=== PATIENT | male | born 1965 | race Caucasian/White ===

== ENCOUNTER → 2024-05-22 13:55 | Outpatient (REF) | payer SELFPAY | LOC: RAD 13:55 | PROVIDERS: ATTENDING PHYSICIAN Physician Assistant | DX: N50.89 Other specified disorders of the male genital organs (principal) | CPT/HCPCS: 76870; 93976 ==

== ENCOUNTER → 2025-05-18 08:20 | Outpatient (REF) | payer SELFPAY ==
[2025-05-18 08:31] LABS: Glucose 103 mg/dl (70-99)
== END ==
LOC: PET 08:20
PROVIDERS: Radiology Neuroradiology; ATTENDING PHYSICIAN Internal Medicine Pulmonary Disease
DX: R91.1 Solitary pulmonary nodule (principal); Z01.812 Encounter for preprocedural laboratory examination
CPT/HCPCS: 36415; 82947

== ENCOUNTER 2025-05-31 09:22 | Emergency (ER) | payer SELFPAY ==
[2025-05-31 09:31] VITALS: BP 110/84
--- NOTE | 2025-05-31 11:31 | ED.GENMED ---
History of Present Illness
General
Chief Complaint: Generalized Pain
Source: patient
Time Seen by Provider: 05/31/25 11:22
History of Present Illness
History of Present Illness:
60-year-old male presents to the emergency room complaining of pain primary located in the right chest. Patient was diagnosed with lung cancer recently. He was referred to [facility] where he saw a oncologist, Dr. Jones. A PET scan was ordered and
performed a couple weeks ago. He has not heard anything about the results. Patient's contacted the oncologist at [facility] multiple times to see if he can get some treatment for his pain but states he has not received a callback. Patient denies
any fever or chills. He is not particular short of breath.
Past History
Past History
ED Past Medical History: None and Other (Questionable kidney stones)
ED Past Surgical History: None
Social History
Tobacco: Smoker
Alcohol: None
Drug: None
Personal: Single
Living: alone
Employment: Employed
Phy Exam
Physical Exam
Physical Exam:
General: Awake, Alert, Oriented X3. No acute distress but appears uncomfortable particular with movement of his chest and arms
Vitals: unremarkable
Head: Atraumatic
Eyes: Pupils equal, EOMI
Throat: Airway intact, no exudates
Neck: Trachea midline
Lungs: Poor inspiratory effort, no focality
Heart: Regular rate, no murmurs
Abd: Soft, Nontender, No pulsatile mass
Neuro: Nonfocal
Skin: Warm, dry, no rash
Extremities: pulses equal b/l, no edema
Course
Orders/Labs/Results
Orders:
Orders
05/31/25 11:29
HYDROmorphone [Dilaudid] 0.5 mg IV NOW STA
CR Chest - 2 Views Urgent
Comment:
Reason For Exam: right sided chest pain
05/31/25 11:51
Basic Metabolic Panel Urgent
Complete Blood Count/With Diff Urgent
05/31/25 13:26
HYDROmorphone [Dilaudid] 0.5 mg IV NOW STA
Ketorolac [Toradol] 15 mg IV NOW STA
05/31/25 13:27
CT Chest PE Study Urgent
Comment:
Reason For Exam: right chest pain
Abnormal Lab Results
05/31/25
11:51
RBC 3.67 L 10^6/uL
(4.70-6.10)
Hgb 10.7 L g/dL
(13.0-18.0)
Hct 32.3 L %
(39.0-52.0)
Absolute Monos (auto) 0.8 H 10^3/uL
(0.1-0.6)
Glucose 105 H mg/dl
(70-99)
05/31/25 11:51
05/31/25 11:51
Vital Signs
Initial and Last Documented VS:
Initial Vital Signs
Temp Pulse Resp BP Pulse Ox
98.1 F 84 16 110/84 98
05/31/25 09:31 05/31/25 09:31 05/31/25 09:31 05/31/25 09:31 05/31/25 09:31
Last Documented Vital Signs
Temp Pulse Resp BP Pulse Ox
98.3 F 99 19 134/86 97
05/31/25 15:08 05/31/25 15:08 05/31/25 15:08 05/31/25 15:08 05/31/25 15:08
MDM/Problems Addressed
Differential Diagnosis Includes:
PE, spontaneous thorax, pain from metastatic disease to the thorax
MDM/Problems Addressed:
Patient presents with severe chest pain. He was recently found to have lung mass. He is in the process of having this worked up. Workup here shows no evidence for PE or pneumothorax. He does have a wide array of metastatic lesions in the thorax,
spine and elsewhere. Try pain control with oxycodone 1 to 2 pills every 4 hours until he can follow-up with his oncologic doctors.
*Pulse Oximetry
SaO2: 98
Oxygen Mode of Delivery: Room air
Patient hypoxic: no
*Critical Care Note
Total Time (30-74mins, 75-104mins- exclusive of procedures): Not Applicable
ED Attending Note
-
Portions of this chart may have been created with voice recognition software.� Occasional wrong word or��sound alike� substitutions may have occurred due to the inherent limitations of voice recognition software.
Discharge Plan
Departure
Patient Disposition: Home (Routine Discharge)
Date of Disposition: 05/31/25
Time of Disposition: 15:30
Patient with high blood pressure during this ER visit?: No
Condition: Good
Discharge Problem:
Lung mass, Cancer, metastatic to bone
Prescriptions:
New
oxycodone 5 mg tablet
5 mg PO Q4H PRN (Reason: Pain) Qty: 40 0RF
Rx Instructions:
one to two tablets as needed every 4 hours for severe pain
naloxone [Rextovy] 4 mg/actuation spray,non-aerosol
1 spray intranasal Q2M PRN (Reason: opioid overdose) Qty: 2 0RF
Referrals:
Nader Boucher, DO [Active, Hematology / Oncology]
NONE,* [Family Provider, Internal Medicine]
Interventions
Interventions:
*Risk Screen - Suicide Last Done: 05/31/25 09:31
*General Assessment Last Done: 05/31/25 09:31
*Neglect/Abuse Screening Last Done: 05/31/25 09:31
*ED- Fall Risk Assessment Last Done: 05/31/25 15:03
*ED COVID-19 Vaccine History Last Done: 05/31/25 15:03
*ED Influenza Vaccine History Last Done: 10/09/25 15:03
Discharge Date and Time
Print Language: MOHAWK
[2025-05-31] MEDS: DILAUDID 0.5 MG IV ×2 (11:50→13:56)
[2025-05-31 11:53] VITALS: BMI 24.2
[2025-05-31 11:54] VITALS: BP 141/85
[2025-05-31 12:02] LABS: Hematocrit 32.3 % (39.0-52.0); Hemoglobin 10.7 g/dL (13.0-18.0); Mean Corp Hgb Conc. 33.1 g/dL (33.0-37.0); Mean Corpuscular Volume 88.0 fL (80.0-94.0); Nucleated Red Blood Cells % 0 % (-); Platelet Count 250 10^3/uL (130-400); Red Cell Dist. Width 12.6 % (11.5-14.5)
[2025-05-31 12:19] LABS: Blood Urea Nitrogen 17 mg/dl (9-20); Calcium 10.0 mg/dl (8.4-10.2); Carbon Dioxide 30 mmol/L (22-30); Chloride 104 mmol/L (98-107); Estimated Creatinine Clearance 104 ml/min; Glucose 105 mg/dl (70-99); Potassium 4.3 mmol/L (3.5-5.1); Sodium 138 mmol/L (135-145); eGFR > 60.00
[2025-05-31] MEDS: TORADOL 15 MG IV (13:56)
[2025-05-31 15:08] VITALS: BP 134/86
== END 2025-05-31 16:23 | disposition home or self-care (01) ==
LOC: EMR 09:22
PROVIDERS: EMERGENCY PHYSICIAN Emergency Medicine
DX: C78.00 Secondary malignant neoplasm of unspecified lung (principal); C79.51 Secondary malignant neoplasm of bone; C79.89 Secondary malignant neoplasm of other specified sites; F17.200 Nicotine dependence, unspecified, uncomplicated; Z85.118 Personal history of other malignant neoplasm of bronchus and lung
CPT/HCPCS: 99284; 96374; 96375; 96376; 71046; 71275; 80048; 85025; Q9967

== ENCOUNTER 2025-06-12 18:27 | Emergency (ER) | payer MEDICARE, SELFPAY ==
[2025-06-12] VITALS (13 sets, daily range): BP systolic 102–144; BP diastolic 70–85; BMI 24.6
[2025-06-12 19:57] LABS: Hematocrit 33.8 % (39.0-52.0); Hemoglobin 10.9 g/dL (13.0-18.0); Mean Corp Hgb Conc. 32.2 g/dL (33.0-37.0); Mean Corpuscular Volume 89.2 fL (80.0-94.0); Nucleated Red Blood Cells % 0 % (-); Platelet Count 268 10^3/uL (130-400); Red Cell Dist. Width 12.8 % (11.5-14.5)
[2025-06-12 20:18] LABS: ALT (SGPT) 14 U/L (0-50); AST (SGOT) 16 U/L (17-59); Albumin 4.2 g/dl (3.5-5.0); Alkaline Phosphatase 136 U/L (38-126); Blood Urea Nitrogen 19 mg/dl (9-20); Calcium 10.8 mg/dl (8.4-10.2); Carbon Dioxide 28 mmol/L (22-30); Chloride 99 mmol/L (98-107); Estimated Creatinine Clearance 117 ml/min; Glucose 107 mg/dl (70-99); Potassium 4.8 mmol/L (3.5-5.1); Sodium 134 mmol/L (135-145); Total Protein 7.4 g/dl (6.3-8.2); eGFR > 60.00
[2025-06-12 20:29] LABS: Troponin I 0.020 ng/ml
[2025-06-12] MEDS: DILAUDID 2 MG IV ×2 (20:29→21:29)
--- NOTE | 2025-06-12 21:14 | ED.GENMED ---
History of Present Illness
General
Chief Complaint: Chest Pain
Time Seen by Provider: 06/12/25 20:02
History of Present Illness
History of Present Illness:
60-year-old male with history of stage IV lung cancer with metastasis to bone, following at [facility], presenting to the emergency department for chest wall pain and back pain. Patient reports that symptoms started earlier today after he was getting a
CAT scan of his head outpatient. He reports laying on the table and lifting his arms up is what started the pain. Reports pain with deep inspiration and subsequent shortness of breath. He takes oral morphine for pain and his oncologist told him
to double up today, every 12 hours. He did not take the second dose. Cousin at bedside notes issues with pain throughout his cancer journey, follows with pain management. Denies known cardiac issues. Denies abdominal pain or additional acute
medical complaints
Past History
Past History
ED Past Medical History: None and Other (Questionable kidney stones)
ED Past Surgical History: None
Social History
Tobacco: Smoker
Alcohol: None
Drug: None
Personal: Single
Living: alone
Employment: Employed
Phy Exam
Physical Exam
Physical Exam:
General: Well-appearing, no clinical signs of dehydration, nontoxic and in no acute distress
HEENT: protecting airway
Neck: appears supple
CV: Normal heart rate, regular rhythm
Resp: No accessory muscle use, no increased work of breathing, lungs clear to auscultation bilaterally
Abd: No distention
Extremities: No deformities, no swelling
Neuro: alert, no focal neurologic deficit
: deferred
Rectal: deferred
Psych: Normal affect
Skin: Intact
Scores
Heart Score for Chest Pain Patients
STEMI patient?: No
History: Slightly or Non-Suspicious
ECG: Normal
Age: >45 - <65 years
Risk Factors: 1 or 2 Risk Factors
Troponin: </= Normal Limit
Heart Score for Chest Pain Patients: 2
Heart Score Risk: 2.5% MACE over next 6 weeks
Course
Orders/Labs/Results
Orders:
Orders
06/12/25 18:28
Electrocardiogram (*1) Urgent
Reason for Study: Chest Pain
EKG- Treatment ONCE
06/12/25 19:49
CMP [Comprehensive Metabolic Panel] Urgent
Complete Blood Count/With Diff Urgent
Troponin I Urgent
06/12/25 20:01
CR Chest - 2 Views Urgent
Comment:
Reason For Exam: sob
06/12/25 20:16
HYDROmorphone [Dilaudid] 2 mg IV NOW STA
06/12/25 21:21
HYDROmorphone [Dilaudid] 2 mg IV NOW STA
Abnormal Lab Results
06/12/25
19:49
WBC 12.3 H 10^3/uL
(4.8-10.8)
RBC 3.79 L 10^6/uL
(4.70-6.10)
Hgb 10.9 L g/dL
(13.0-18.0)
Hct 33.8 L %
(39.0-52.0)
MCHC 32.2 L g/dL
(33.0-37.0)
Abs Immat Gran (auto) 0.1 H 10^3/uL
(0-0.05)
Absolute Neuts (auto) 8.6 H 10^3/uL
(1.4-6.5)
Absolute Monos (auto) 1.1 H 10^3/uL
(0.1-0.6)
Lymphocytes % 17.0 L %
(20.5-51.1)
Sodium 134 L mmol/L
(135-145)
Glucose 107 H mg/dl
(70-99)
Calcium 10.8 H mg/dl
(8.4-10.2)
AST 16 L U/L
(17-59)
Alkaline Phosphatase 136 H U/L
(38-126)
06/12/25 19:49
06/12/25 19:49
Vital Signs
Initial and Last Documented VS:
Initial Vital Signs
Temp Pulse Resp BP Pulse Ox
98.3 F 102 16 144/85 99
06/12/25 18:31 06/12/25 18:31 06/12/25 18:31 06/12/25 18:31 06/12/25 18:31
Last Documented Vital Signs
Temp Pulse Resp BP Pulse Ox
98.3 F 80 18 116/78 94
06/12/25 18:31 06/12/25 23:00 06/12/25 23:00 06/12/25 23:00 06/12/25 22:45
MDM/Problems Addressed
MDM/Problems Addressed:
60-year-old male with history of metastatic lung cancer presenting for chest pain and back pain after getting an outpatient CT scan. Vital signs on arrival significant for mild tachycardia which resolved without intervention.
On exam, patient is resting comfortably, no acute distress. No respiratory distress. EKG obtained on arrival, nonischemic. Suspect that patient's pain is from his underlying malignancy. Cousin at bedside notes issues with pain, is on chronic
narcotics. Pain worsened after lying flat on a CAT scan table prior to arrival was for a CT head, which was negative for acute process with cousin providing read at bedside. Without present concern for ACS. Patient had a CT of his chest on 05/31,
without evidence of PE. Without present concern for PE. Labs obtained, unremarkable. Will treat patient's pain with Dilaudid, as requested and reassess
22:50 -chest x-ray without acute cardiopulmonary disease. Patient notes that his pain is better. At this time feel stable for discharge with continued outpatient pain management. Return precautions discussed and patient verbalized understanding
*Pulse Oximetry
SaO2: 98
Oxygen Mode of Delivery: Room air
Patient hypoxic: no
*EKG
Interpreted by ED Provider?: Yes
EKG Intrepretation Date: 06/12/25
EKG Intrepretation Time: 21:17
Interpretation: normal
Heart Rate: 103
Rate: tachycardiac
Rhythm: sinus
Pearce: normal axis
Interval: normal interval
QRS Pattern: normal QRS
Ischemia: non-specific ST changes
*Critical Care Note
Total Time (30-74mins, 75-104mins- exclusive of procedures): Not Applicable
ED Attending Note
-
Portions of this chart may have been created with voice recognition software.� Occasional wrong word or��sound alike� substitutions may have occurred due to the inherent limitations of voice recognition software.
Discharge Plan
Departure
Patient Disposition: Home (Routine Discharge)
Date of Disposition: 06/12/25
Time of Disposition: 22:58
Patient with high blood pressure during this ER visit?: No
Condition: Good
Discharge Problem:
Chest wall pain
Instructions: Chest pain (DC)
Prescriptions:
No Action
oxycodone 5 mg tablet
5 mg PO Q4H PRN (Reason: Pain) Qty: 40 0RF
Rx Instructions:
one to two tablets as needed every 4 hours for severe pain
naloxone [Rextovy] 4 mg/actuation spray,non-aerosol
1 spray intranasal Q2M PRN (Reason: opioid overdose) Qty: 2 0RF
Referrals:
Angela Thompson MD [Family Provider, Internal Medicine]
Activity Restrictions/Additional Instructions:
You were seen in the emergency department for pain to your chest and back
You were found to have reassuring laboratory analysis, vital signs, chest x-ray imaging, EKG. We suspect that your pain is from musculoskeletal etiology. We recommend follow-up with your oncologist
Please follow-up closely with your primary care physician.
Return to the emergency department for any worsening of your symptoms, or any development of chest pain, difficulty breathing, abdominal pain with persistent vomiting and inability to tolerate food or liquid by mouth (concern for dehydration),
weakness, headache or confusion, fever greater than 100.4, or any additional symptoms that are concerning to you.
Thank you for choosing [facility].
Interventions
Interventions:
*Risk Screen - Suicide Last Done: 06/12/25 19:40
*General Assessment Last Done: 06/12/25 19:43
*Neglect/Abuse Screening Last Done: 06/12/25 19:40
*ED- Fall Risk Assessment Last Done: 06/12/25 19:43
*ED COVID-19 Vaccine History Last Done: 06/12/25 19:43
*ED Influenza Vaccine History Last Done: 06/12/25 19:43
*Nursing Disposition Last Done: 06/12/25 23:00
ED- Cardiac Assessment Last Done: 06/12/25 19:55
Discharge Date and Time
Discharge Date/Time: 06/12/25 23:00
Print Language: POLISH
== END 2025-06-12 23:00 | disposition home or self-care (01) ==
LOC: EMR 18:27
PROVIDERS: EMERGENCY PHYSICIAN Student in an Organized Health Care Education/Training Program; FAMILY PHYSICIAN Internal Medicine
DX: R07.89 Other chest pain (principal); R00.0 Tachycardia, unspecified; C34.11 Malignant neoplasm of upper lobe, right bronchus or lung; C79.51 Secondary malignant neoplasm of bone; F17.200 Nicotine dependence, unspecified, uncomplicated
CPT/HCPCS: 99284; 96374; 96376; 71046; 80053; 84484; 85025; 93005

== ENCOUNTER 2025-06-21 08:55 | Inpatient (IN) | payer MEDICAID, SELFPAY ==
[2025-06-20 20:51] VITALS: BP 124/83
[2025-06-20] MEDS: DILAUDID 2 MG IV (22:35)
[2025-06-20 22:36] VITALS: BMI 22.9
--- NOTE | 2025-06-20 23:59 | ED.GENMED ---
History of Present Illness
General
Chief Complaint: Musculo-Skeletal Complaint
Time Seen by Provider: 06/20/25 23:59
History of Present Illness
History of Present Illness:
FOCUSED PAST MEDICAL HISTORY
- The patient has history of metastatic lung cancer to the bone known to [employer]
REVIEW OF OLD RECORDS
- The patient had a CAT scan of the chest 07/31/2025 that showed no PE, showed mass right hilar and suprahilar region measuring up to 6.5 cm and osseous mets in the sternum and bilateral ribs that have progressed slightly since 05/18/2025
Note:
CHIEF COMPLAINT(S)
Severe pain in the right side and back.
HISTORY OF PRESENT ILLNESS
The patient is a 60-year-old male with a known history of metastatic disease to the ribs. He arrived in the emergency department via ambulance complaining of severe pain primarily localized to his right side and back. He describes the pain as
worsening with certain movements and notes that it has been persistent for approximately six months. He reports the current pain level as very severe, stating �if I move a certain way, you know, my heart feels uncomfortable.� The patient also
experiences numbness in his arm.
He has been on morphine for approximately one week, prescribed by his oncologists at [place] for pain management, but reports that it is not effectively controlling his pain. Previous visits to the ER resulted in the administration of narcotic
pain medication that also provided limited relief.
EXTERNAL RECORDS REVIEWED
Prior CT scan results were referenced, indicating metastatic disease into the ribs.
CHRONIC MEDICAL CONDITIONS SIGNIFICANTLY AFFECTING CARE
Metastatic disease involving the ribs.
MEDICATIONS
Morphine (prescribed approximately one week ago for pain management).
REVIEW OF SYSTEMS
- Musculoskeletal: Severe pain in the right side and back, numbness in the arm.
- Cardiovascular: Reports feeling heart discomfort associated with movements.
PHYSICAL EXAM
General: Alert, appears very uncomfortable
Skin: Warm, dry. Heavily tattooed, diaphoretic at times may be related to pain and uncomfortable feeling
Head: Normocephalic, atraumatic.
Neck: Supple, trachea midline.
Eyes, Ears, Nose, Mouth, and Throat: Oral mucosa moist.
Cardiovascular: Normal peripheral perfusion, No edema. Marked tenderness to the anterior chest wall diffusely
Respiratory: Respirations are non-labored.
Gastrointestinal: Abdomen nondistended. Trace heme positive brown stool on digital rectal examination
Back: Markedly decreased active range of motion due to pain
Musculoskeletal: Normal ROM, normal strength.
Neurological: Alert and oriented to person, place, time, and situation. Reports numbness in the arm but no abnormality noted on neurologic examination.
Psychiatric: Cooperative, appropriate mood & somewhat of a bizarre and angry affect at times.
PROBLEM LIST
Acute Problems:
- Severe right-sided and back pain
- Numbness in the arm
Chronic Problems:
- Metastatic disease to the ribs
PLAN
1. Administration of additional pain management as requested by the patient.
2. Consideration for patient admission for further pain management and monitoring.
DIFFERENTIAL DIAGNOSIS
The Differential Diagnosis includes, in no particular order and is not limited to:
1. Metastatic bone pain
2. Rib fractures
3. Neural compression
4. Musculoskeletal pain
5. Pleuritic pain
6. Costochondritis
7. Radicular pain
8. Cardiac pain
9. Pulmonary embolism
10. Vertebral fracture or collapse
LABS
- White count 10.8, hemoglobin 8.7 which is lower than 10.9 from 9 days ago and in 2021 it was 13.6, calcium 11.1
UPDATE
- SUMMARY OF ENCOUNTER
The patient, a 60-year-old male with a history of metastatic disease to the ribs, presented to the emergency department with severe pain on the right side and back, accompanied by numbness in the arm. He also reported discomfort in his heart
associated with movement, and ongoing severe pain despite being on morphine for one week. His hemoglobin level has dropped to 8, noted during routine lab checks; however, it was not low enough to necessitate a transfusion. His calcium levels were
also elevated. The patient expressed apprehension about his condition and the effectiveness of pain management, indicating his preference for hospital admission due to the inadequacy of outpatient pain control.
DISPOSITION
Consideration for admission to the hospital for further pain management and control.
ASSESSMENT
The patient is experiencing severe metastatic bone pain related to rib metastases, with additional concerns about potential neural compression and elevated calcium levels, suggestive of further complications associated with metastatic cancer.
PLAN
The plan includes hospital admission for enhanced pain management and monitoring of blood parameters, including addressing elevated calcium levels. Additional discussions regarding pain control and further treatment options may be required.
INDEPENDENT REVIEW OF LABS AND INTERPRETATION OF TESTS
My independent review of CBC indicates a decrease in hemoglobin level to 8, which is consistent with possible anemia but does not yet require a blood transfusion.
My independent review of metabolic panel shows elevated calcium levels, necessitating the administration of IV fluids.
PATIENT EDUCATION AND COUNSELING
Education was provided on the need for hospital admission for better pain management and monitoring of lab parameters. The potential risks of elevated calcium levels were explained.
MEDICATION RECONCILIATION
1. Morphine prescribed for pain management.
MEDICAL DECISION MAKING
- Number and Complexity of Problems Addressed: Chronic conditions affecting care include metastatic disease to the ribs, current presentation with severe right-sided and back pain, numbness in the arm, decreased hemoglobin, and elevated calcium
levels. Differential Diagnosis considerations were metastatic bone pain, rib fractures, neural compression, musculoskeletal pain, pleuritic pain, costochondritis, radicular pain, cardiac pain, pulmonary embolism, vertebral fracture or collapse.
- Data:
Category 1: Non-emergency department records reviewed: Prior review of CT scan results indicating metastatic disease into the ribs.
Category 3: Discussion of management with other healthcare providers: I discussed the possibility of hospital admission and further management with the hospitalist team for the patient�s ongoing severe pain and elevated calcium levels.
- Risk:
Prescription medication was considered, including the necessity for additional IV pain management options. Escalation of care via hospital admission considered due to the complexity and severity of symptoms, alongside underlying comorbidities.
DIAGNOSIS
Intractable cancer-related pain related metastatic lung cancer to bone
Past History
Past History
ED Past Medical History: None and Other (Questionable kidney stones)
ED Past Surgical History: None
Social History
Tobacco: Smoker
Alcohol: None
Drug: None
Personal: Single
Living: alone
Employment: Employed
Phy Exam
Physical Exam
Physical Exam:
See HPI
Course
Orders/Labs/Results
Orders:
Orders
06/20/25 22:33
HYDROmorphone [Dilaudid] 2 mg IV NOW STA
06/21/25 00:16
HYDROmorphone [Dilaudid] 2 mg IV NOW STA
06/21/25 00:29
Complete Blood Count/With Diff Urgent
Comprehensive Metabolic Panel Urgent
06/21/25 01:29
0.9% Sodium Chloride 1000 ml [Nss] 1,000 ml IV BOLUS
06/21/25 01:39
HYDROmorphone [Dilaudid] 2 mg IV NOW STA
Abnormal Lab Results
06/21/25
00:29
RBC 3.07 L 10^6/uL
(4.70-6.10)
Hgb 8.7 L g/dL
(13.0-18.0)
Hct 26.6 L %
(39.0-52.0)
MCHC 32.7 L g/dL
(33.0-37.0)
Abs Immat Gran (auto) 0.1 H 10^3/uL
(0-0.05)
Absolute Neuts (auto) 7.4 H 10^3/uL
(1.4-6.5)
Absolute Monos (auto) 1.0 H 10^3/uL
(0.1-0.6)
Immature Gran % 0.6 H %
(0-0.5)
Lymphocytes % 18.1 L %
(20.5-51.1)
Monocytes % 9.7 H %
(1.7-9.3)
Sodium 134 L mmol/L
(135-145)
Chloride 95 L mmol/L
(98-107)
BUN 24 H mg/dl
(9-20)
Glucose 136 H mg/dl
(70-99)
Calcium 11.1 H mg/dl
(8.4-10.2)
AST 14 L U/L
(17-59)
06/21/25 00:29
06/21/25 00:29
Vital Signs
Initial and Last Documented VS:
Initial Vital Signs
Temp Pulse Resp BP Pulse Ox
36.6 C 110 16 124/83 95
06/20/25 20:51 06/20/25 20:51 06/20/25 20:51 06/20/25 20:51 06/20/25 20:51
Last Documented Vital Signs
Temp Pulse Resp BP Pulse Ox
36.6 C 82 16 124/83 98
06/20/25 20:51 06/20/25 22:45 06/20/25 22:50 06/20/25 20:51 06/21/25 00:01
*Pulse Oximetry
SaO2: 98
Oxygen Mode of Delivery: Room air
Patient hypoxic: no
*Critical Care Note
Total Time (30-74mins, 75-104mins- exclusive of procedures): Not Applicable
ED Attending Note
-
Portions of this chart may have been created with voice recognition software.� Occasional wrong word or��sound alike� substitutions may have occurred due to the inherent limitations of voice recognition software.
Discharge Plan
Departure
Prescriptions:
No Action
oxycodone 5 mg tablet
5 mg PO Q4H PRN (Reason: Pain) Qty: 40 0RF
Rx Instructions:
one to two tablets as needed every 4 hours for severe pain
naloxone [Rextovy] 4 mg/actuation spray,non-aerosol
1 spray intranasal Q2M PRN (Reason: opioid overdose) Qty: 2 0RF
Referrals:
Angela Thompson MD [Family Provider, Internal Medicine]
Interventions
Interventions:
*Risk Screen - Suicide Last Done: 06/20/25 20:55
*General Assessment Last Done: 06/20/25 22:40
*Neglect/Abuse Screening Last Done: 06/20/25 20:55
*ED- Fall Risk Assessment Last Done: 06/20/25 22:40
*ED COVID-19 Vaccine History Last Done: 06/20/25 22:40
*ED Influenza Vaccine History Last Done: 06/20/25 22:40
ED-Musculoskeletal Assessment Last Done: 06/20/25 22:47
Discharge Date and Time
Print Language: MONTSERRATIAN
[2025-06-21] VITALS (22 sets, daily range): BP systolic 109–152; BP diastolic 55–87; BMI 22.9
[2025-06-21] MEDS: DILAUDID 2 MG IV ×2 (00:30→01:47)
[2025-06-21 00:58] LABS: Hematocrit 26.6 % (39.0-52.0); Hemoglobin 8.7 g/dL (13.0-18.0); Mean Corp Hgb Conc. 32.7 g/dL (33.0-37.0); Mean Corpuscular Volume 86.6 fL (80.0-94.0); Nucleated Red Blood Cells % 0 % (-); Platelet Count 236 10^3/uL (130-400); Red Cell Dist. Width 13.0 % (11.5-14.5)
[2025-06-21 01:10] LABS: ALT (SGPT) 12 U/L (0-50); AST (SGOT) 14 U/L (17-59); Albumin 3.7 g/dl (3.5-5.0); Alkaline Phosphatase 114 U/L (38-126); Blood Urea Nitrogen 24 mg/dl (9-20); Calcium 11.1 mg/dl (8.4-10.2); Carbon Dioxide 29 mmol/L (22-30); Chloride 95 mmol/L (98-107); Estimated Creatinine Clearance 92 ml/min; Glucose 136 mg/dl (70-99); Potassium 4.9 mmol/L (3.5-5.1); Sodium 134 mmol/L (135-145); Total Protein 6.6 g/dl (6.3-8.2); eGFR > 60.00
[2025-06-21] MEDS: NSS 1000 IV (01:34)
--- NOTE | 2025-06-21 02:03 | HPS.HSE ---
Family Physician
-
Family Physician: Angela Thompson
Chief Complaint
-
chest pain
History of Present Illness
This is a 60-year-old with history of metastatic lung cancer with mets to the bone presents to the emergency department today for severe chest and back pain.
He was discharged in the ED last 2 visits earlier this month due to chest pain. At that time he had CTA of the chest which was negative for PE. He did showed a lung malignancy and osseous mets to the sternum and bilateral ribs. He has been
following at [facility] since then. It has progressed since May 18. Chest x-ray on the showed similar findings.
Patient reports pain primary localized to his right side and back. It is worse with movement and it has been persistent for several months. He denies any shortness of breath. He denies any diaphoresis. He does report some numbness in his right
hand. He says he has to move his shoulder his way to get comfortable with the numbness in his right hand. He denies any weakness. He denies any paresthesias or tingling or pins and needle sensation.
He has been on morphine for approximately 1 week prescribed by his oncologist for pain.
In the ED here he was afebrile, blood pressure 124/80 with a pulse of 82 and was satting 98% on room air. He is hemoglobin of 8.7 which is down from 10 a month ago. WBC and platelets were unremarkable. Electrolytes BUN/creatinine were normal.
LFTs were normal.
Medical History
Past Medical History
Past Medical History: Reports Cancer (Metastatic lung cancer)
Past Surgical History: Reports Orthopedic (Right wrist surgery)
Social History
Tobacco: Smoker
Alcohol: None
Drug: None
Personal: Single
Living: Alone
Family History
Family History: Not pertinent
Allergies / Home Medications
Allergies reflects when Allergies were last updated in [employer].
Home Medications with original date entered in [employer]
Allergy/Medication List:
Allergies
Allergy/AdvReac Type Severity Reaction Status Date / Time
No Known Allergies Allergy Verified 06/20/25 22:50
Home Medications
naloxone 4 mg/actuation nasal spray (Rextovy) 1 spray intranasal Q2M PRN opioid overdose #2 ea 05/31/25
oxycodone 5 mg tablet 5 mg PO Q4H PRN Pain #40 tabs 05/31/25
Review of Systems
-
Constitutional: Reports No Symptoms
EENT: Reports No Symptoms
Respiratory: Reports No Symptoms
Cardiac: Reports Chest Pain
Abdomen/GI: Reports Nausea
: Reports No Symptoms
Musculoskeletal: Reports No Symptoms
Skin: Reports No Symptoms
Neurological: Reports No Symptoms
Endocrine: Reports No Symptoms
Hematologic/Lymphatic: Reports No Symptoms
Psych: Reports No Symptoms
Physical Exam
Vital Signs
Vital Signs
Temp Pulse Resp BP Pulse Ox
97.9 F 82 16 124/83 98
06/20/25 20:51 06/20/25 22:45 06/20/25 22:50 06/20/25 20:51 06/21/25 00:01
Physical Exam
General: Well Developed, Well Nourished and No Apparent Distress
HEENT: NormoCephalic, Moist mucous membranes and Atraumatic
Respiratory: Clear
Cardiac: S1/S2 and Regular Rhythm; No Murmur or Rub
GI: Soft, Non Tender, Non Distended and Normal Bowel Sounds; No Organomegaly
Rectal: Deferred by Provider
Musculoskeletal: No Clubbing, No Cyanosis and No Edema
Skin: No Rash
Neuro: AO x 3 and Nonfocal/grossly intact
Psych: Anxious
Laboratory Results
-
06/21/25 00:29
06/21/25 00:29
Laboratory Results
Total Bilirubin 0.5 mg/dl (0.2-1.3) 06/21/25 00:29
AST 14 U/L (17-59) L 06/21/25 00:29
ALT 12 U/L (0-50) 06/21/25 00:29
Alkaline Phosphatase 114 U/L (38-126) 06/21/25 00:29
Data Reviewed
-
CT Scan: Report Reviewed by me
Medical Tests (Nuc Med, Echo, EKG etc): Image Personally Visualized and interpreted
Lab Data: Labs Reviewed by me
Old Records: Reviewed
Impression/Plan
-
IMPRESSION:
60-year-old with recent diagnosis of metastatic lung cancer with osseous mets involving the sternum and bilateral ribs. Reports that he was told that he has stage IV lung cancer. He is pending initiation of chemotherapy. He did get a round of
radiation. He has been having pain for several months now and he says he had become unbearable despite prescription of pain medications. He said the pain medication that he is currently using makes him feel high but does not result in reduction in
pain. He denies constipation. Had prior CT angio that was negative for PE. No signs of an acute infection. Patient has some numbness of his right hand without any weakness or pins and needle sensation. No back pain. He is understandably very
anxious and nervous about his new diagnosis and what it portends.
PLAN:
Chest pain -musculoskeletal chest pain stemming from osseous metastatic lung cancer
-Admit to [facility]
-Patient on MS contin 30 bid and Morphine 15mg q 8 hours prn without relief.
- IV dilaudid slighlty improved
- continue MS contin bid for now
- oral oxycodone q 4 hours prn
- IV morphine for breakthrough
- start famotidine and ppi iv daily
-Antiemetics
-Bowel regimen
- Consider Palliative/Pain management consult
Anemia - Weakly heme +. Hgb 8.6. Recent Radiation. HD stable. Unlikely acute bleed but does have nausea and stomach discomfort
- trend h/h
- stool hemocult
- iron studies
- follow up with oncology if no evidence of blood loss
DVT prophylaxis�SCDs
CODE STATUS�full code
[2025-06-21] MEDS: MAALOX 30 ML PO (02:46)
[2025-06-21] MEDS: PEPCID 20 MG IV (02:48)
[2025-06-21] MEDS: MORPHINE SULFATE 4 MG IV ×3 (04:03→08:21)
[2025-06-21] MEDS: VALIUM INJECTION 2 MG IV (05:11)
[2025-06-21] MEDS: TORADOL 15 MG IV ×2 (05:12→12:04)
[2025-06-21 06:35] LABS: Hematocrit 25.5 % (39.0-52.0); Hemoglobin 8.2 g/dL (13.0-18.0); Mean Corp Hgb Conc. 32.2 g/dL (33.0-37.0); Mean Corpuscular Volume 91.7 fL (80.0-94.0); Platelet Count 213 10^3/uL (130-400); Red Cell Dist. Width 13.1 % (11.5-14.5)
[2025-06-21 07:27] LABS: Blood Urea Nitrogen 24 mg/dl (9-20); Calcium 10.6 mg/dl (8.4-10.2); Carbon Dioxide 28 mmol/L (22-30); Chloride 98 mmol/L (98-107); Estimated Creatinine Clearance 92 ml/min; Glucose 106 mg/dl (70-99); Iron 30 ug/dl (49-181); Potassium 4.6 mmol/L (3.5-5.1); Sodium 133 mmol/L (135-145); eGFR > 60.00
[2025-06-21] MEDS: MS CONTIN (EXTENDED RELEASE) 30 MG PO ×3 (07:39→21:12)
[2025-06-21] MEDS: PROTONIX IV 40 MG IV (07:39)
[2025-06-21] MEDS: NSS (PRESERVATIVE FREE) 10 ML IV (07:40)
[2025-06-21] MEDS: PEPCID 20 MG PO ×2 (07:40→20:26)
[2025-06-21 07:44] LABS: Total Iron Binding Capacity 282 ug/dl (261-462)
[2025-06-21] MEDS: ROXICODONE 10 MG PO (09:13)
--- NOTE | 2025-06-21 09:23 | W.PN.HOSP.TC ---
Today's Communication/Plan
-
see plan
Assessment / Plan
Assessment / Plan
60-year-old with recent diagnosis of metastatic lung cancer with osseous mets involving the sternum and bilateral ribs s/p radiation, awaiting chemotherapy (seen at [place]) presents to the ER with intractable pain despite home pain medications.
Severe pain 2/2 Osseous metastatic Disease
Lung Cancer
- patient is in a significant amount of paint his morning
- increase long acting morphine to 30mg q 8 hours (from q 12)
- start COMPOSITE BOAT BUILDER Pump - discussed with ONcology and Surgery
- start famotidine and ppi iv daily
- Antiemetics
- Bowel regimen
- appreciate Oncology consult
Anemia - Weakly heme +. Hgb 8.6. Recent Radiation. HD stable. Unlikely acute bleed but does have nausea and stomach discomfort
-monitor CBC
DVT prophylaxis�SCDs
CODE STATUS�full code
51 minutes spent on patient care
Anticipated Discharge: > 48 hours
Subjective/Interval History
-
Date of Service: June 21, 2025
he is in a significant amount of pain
Objective Data
-
Labs:
Laboratory Results
06/21/25 06/21/25
00:29 05:54
WBC 10.8 8.6
Hgb 8.7 L 8.2 L
Hct 26.6 L 25.5 L
Plt Count 236 213
Sodium 134 L 133 L
Potassium 4.9 4.6
Chloride 95 L 98
Carbon Dioxide 29 28
BUN 24 H 24 H
Creatinine 1.0 1.0
Glucose 136 H 106 H
Calcium 11.1 H 10.6 H
Total Bilirubin 0.5
AST 14 L
ALT 12
Alkaline Phosphatase 114
Vital Signs:
Vital Signs
Temp Pulse Resp BP Pulse Ox
98.1 F 68 16 118/70 96
06/21/25 07:38 06/21/25 07:38 06/21/25 07:38 06/21/25 07:38 06/21/25 07:38
Review of Systems
-
History Source: Patient
All other systems: Reviewed and negative
Physical Exam
-
General: Other (appears in pain )
HEENT: PERRLA
Respiratory: Clear to Auscultation; Negative Wheezes
Cardiac: Regular Rhythm and S1/S2
GI: Soft and Nontender
Musculoskeletal: No Edema
Skin: Warm and Dry; Negative Rash
Neuro: AO x 3
Psych: Anxious
Data Reviewed
-
Diagnostic Radiology: Report Reviewed by me
Labs: Labs Reviewed by me
--- NOTE | 2025-06-21 09:46 | CON.ONC ---
Consultation
-
Date Consultation Requested: 06/21/25
Date Consultation Performed: 06/21/25
Requesting Provider: Dr. Nadia Porter
Performing Provider: Dr. Nader Boucher
Reason for Consultation: metastatic lung cancer
Impression
Impression
IV NSCLC s/p XRT awaiting systemic therapy at [facility]
admitted with intractable pain despite home pain medications
anemia with Hgb trend from >10 to 8g/dL, heme positive stool
hypercalcemia likely of malignancy improved with IVF
mild hyponatremia
Plan
Plan
INVESTMENT BANKING MANAGER for pain management -will need eventual transition to OP pain regimen
check iron studies, b12, folate, monitor for bleeding
continue IVF, consider OP zometa vs xgeva for hypercalcemia
smoking cessation
May benefit from palliative care involvement for symptom management in the community since 3rd presentation this month for pain management
OP malignancy management for systemic therapy will be arranged by [facility] upon discharge
Patient History
History of Present Illness
60yo M with stage IV NSCLC with bone and likely liver and adrenal mets under the care of Dr. Jones at [facility] s/p XRT and awaiting systemic therapy admitted who presented with intractable chest and back pain. He does take LA morphine and IR narcotics
at home. He was treated in the ER 05/31 and 06/12 for similar pain. HIs pain was constant and unchanged with movement or rest, however, now his pain becomes more acute with movement. His initial evaluation is notable for Hgb 8.7 (down from 10.9 on
06/12) with a normal WBC and platelet count. His CMP shows a sodium 134, calcium 11.1 and no significant abnormalities on his LFTs. His calcium has improved to 10.6 after IVF. His CTA on 05/31 showed no pulmonary emboli, however, did show known right
hilar, suprahilar, and osseous mets in the sternum and bilateral ribs.
Clinically, he denies fever, chills, cough, sob, n/v/d or abdominal pain. He denies any weakness. He continues to have severe pain despite IV hydromorphone, morphine sulfate, Ketorolac, diazepam, and oxycodone IR.
Afebrile, no hypoxia or hypotension
Past-Medical/Surgical History
PMH metastatic lung cancer
PSH right wrist
Social smoker. denies Etoh or recreational drugs
Family non contributory
Patient Medication
�Medication �Instructions �Recorded �Confirmed �Last Taken �Type
naloxone 4 mg/actuation nasal 1 spray intranasal Q2M PRN opioid 05/31/25 06/21/25 Unknown Rx
spray (Rextovy) overdose #2 ea
oxycodone 5 mg tablet 5 mg PO Q4H PRN Pain #40 tabs 05/31/25 06/21/25 06/21/25 09:18 Rx
celecoxib 200 mg capsule 200 mg PO BID 06/21/25 06/21/25 06/20/25 09:00 History
morphine 15 mg immediate release 15 mg PO Q4H PRN pain 06/21/25 06/21/25 06/21/25 09:27 History
tablet
oxycodone 30 mg tablet,extended 30 mg PO Q12H Pain 06/21/25 06/21/25 06/21/25 07:55 History
release,12 hr
Active Medications
Generic Name Dose Route Start Last Admin
Trade Name Freq PRN Reason Stop Dose Admin
Acetaminophen 650 mg 06/21/25 03:46
Acetaminophen 325 Mg Tablet PO 07/19/25 03:45
Q4HPRN PRN
mild pain/MORENO/temp> 100.4F
Al Hydrox/Mg Hydrox/Simethicone 30 ml 06/21/25 03:46
Mag/Al/Simethicone Suspension 30 Ml Cup PO 07/19/25 03:45
Q6HPRN PRN
Heartburn
Bisacodyl 10 mg 06/21/25 03:46
Bisacodyl 10 Mg Rectal Suppository RECTAL 07/19/25 03:45
[id number] PRN
constipation
Celecoxib 200 mg 06/21/25 10:00
Celecoxib 200 Mg Capsule PO 07/19/25 09:59
BID GUADALUPE
Docusate Sodium 100 mg 06/21/25 10:00
Docusate Sodium 100 Mg Capsule PO 07/19/25 09:59
BID GUADALUPE
Famotidine 20 mg 06/21/25 08:00 06/21/25 07:40
Famotidine 20 Mg Tablet PO 07/19/25 07:59 20 mg
BID GUADALUPE Administration
Hydromorphone HCl 1 mg 06/21/25 09:29
Hydromorphone 1 Mg/Ml Carpuject IV 06/21/25 09:30
NOW STA
Dextrose/Sodium Chloride 1,000 mls @ 40 mls/hr 06/21/25 09:37
D5/0.45%Nacl IV
.Q24H PRN
INVESTMENT BANKING MANAGER Protocol- IVF discontinued
Hydromorphone HCl 30 mg in 30 mls @ 0 mls/hr 06/21/25 09:45
Dilaudid Robot Designer IV
PER PROTOCOL GUADALUPE
Protocol
Per Protocol
Naloxone HCl 0.04 mg 06/21/25 09:37
Naloxone (0.4 Mg/Ml) 1 Ml Injection IV 07/19/25 09:36
Q2MPRN PRN
RR </= 10/min / Pasero scale=4
Ondansetron HCl 4 mg 06/21/25 03:46
Ondansetron 4 Mg/2 Ml Vial IV 07/19/25 03:45
Q6HPRN PRN
nausea and vomiting
Pantoprazole Sodium 40 mg 06/21/25 08:00 06/21/25 07:39
Pantoprazole Sodium 40 Mg/10 Ml Vial IV 07/19/25 07:59 40 mg
DAILY GUADALUPE Administration
Polyethylene Glycol 17 grams 06/22/25 08:00
Polyethylene Glycol Powder 17 Grams Packet PO 07/20/25 07:59
DAILY GUADALUPE
Sodium Chloride 0 flush 06/21/25 04:00
Sodium Chloride 0.9% (Flush) Syringe IV 07/19/25 03:59
PER PROTOCOL GUADALUPE
Sodium Chloride 10 ml 06/21/25 08:00 06/21/25 07:40
Sodium Chloride 0.9% (Preservative Free) 10 Ml Vial IV 07/19/25 07:59 10 ml
DAILY GUADALUPE Administration
Sodium Chloride 0.9 ml 06/21/25 09:37
Sodium Chloride 0.9% (Preservative Free) 10 Ml Vial IV 07/19/25 09:36
Q2MPRN PRN
naloxone dilution
Review of Systems
-
ROS is notable for HPI, otherwise negative
Physical Exam
-
General: Appears in Distress and Pain
HEENT: Moist Mucous Membranes; Negative Jaundice
Cardiology: Normal Sinus Rhythm
Pulmonary: Clear
GI: Soft
Extremities: Pulses Present
Skin: Warm
Psych: Anxious
Labs
Lab Results
WBC 8.6 10^3/uL (4.8-10.8) 06/21/25 05:54
RBC 2.78 10^6/uL (4.70-6.10) L 06/21/25 05:54
Hgb 8.2 g/dL (13.0-18.0) L 06/21/25 05:54
Hct 25.5 % (39.0-52.0) L 06/21/25 05:54
MCV 91.7 fL (80.0-94.0) 06/21/25 05:54
MCH 29.5 pg (27.0-31.0) 06/21/25 05:54
MCHC 32.2 g/dL (33.0-37.0) L 06/21/25 05:54
RDW 13.1 % (11.5-14.5) 06/21/25 05:54
Plt Count 213 10^3/uL (130-400) 06/21/25 05:54
MPV 9.6 fL (7.4-10.4) 06/21/25 05:54
Abs Immat Gran (auto) 0.1 10^3/uL (0-0.05) H 06/21/25 00:29
Absolute Neuts (auto) 7.4 10^3/uL (1.4-6.5) H 06/21/25 00:29
Absolute Lymphs (auto) 2.0 10^3/uL (1.2-3.4) 06/21/25 00:
Absolute Monos (auto) 1.0 10^3/uL (0.1-0.6) H 06/21/25 00:29
Absolute Eos (auto) 0.3 10^3/uL (0-0.7) 06/21/25 00:
Absolute Basos (auto) 0.0 10^3/uL (0-0.2) 06/21/25 00:29
Immature Gran % 0.6 % (0-0.5) H 06/21/25 00:29
Neutrophils % 68.8 % (42.2-75.2) 06/21/25 00:29
Lymphocytes % 18.1 % (20.5-51.1) L 06/21/25 00:
Monocytes % 9.7 % (1.7-9.3) H 06/21/25 00:
Eosinophils % 2.4 % (0-6) 06/21/25 00:29
Basophils % 0.4 % (0-2) 06/21/25 00:29
Creatinine 1.0 mg/dL (0.7-1.3) 06/21/25 05:54
Vital Signs
Vital Signs
Temp Pulse Resp BP Pulse Ox
98.1 F 68 16 118/70 96
06/21/25 07:38 06/21/25 07:38 06/21/25 07:38 06/21/25 07:38 06/21/25 07:38
[2025-06-21] MEDS: DILAUDID 1 MG IV ×2 (09:57→10:48)
[2025-06-21] MEDS: COLACE 100 MG PO ×2 (10:20→20:26)
[2025-06-21] MEDS: D5/0.45%NACL 1000 IV (10:30)
[2025-06-21] MEDS: DILAUDID PCA 30 IV (11:13)
[2025-06-21] MEDS: TYLENOL 1000 MG PO ×2 (12:04→21:12)
[2025-06-21] MEDS: FOLVITE 1 MG PO (12:04)
[2025-06-21] MEDS: DECADRON 4 MG IV ×2 (14:02→21:12)
[2025-06-22 01:00] VITALS: BP 149/79
[2025-06-22 03:00] VITALS: BP 139/84
[2025-06-22 05:00] VITALS: BP 144/85
[2025-06-22] MEDS: DECADRON 4 MG IV ×3 (05:03→22:04)
[2025-06-22] MEDS: MS CONTIN (EXTENDED RELEASE) 30 MG PO (05:03)
[2025-06-22 06:23] LABS: Hematocrit 27.2 % (39.0-52.0); Hemoglobin 8.8 g/dL (13.0-18.0); Mean Corp Hgb Conc. 32.4 g/dL (33.0-37.0); Mean Corpuscular Volume 89.5 fL (80.0-94.0); Platelet Count 245 10^3/uL (130-400); Red Cell Dist. Width 12.9 % (11.5-14.5)
[2025-06-22 06:48] LABS: Blood Urea Nitrogen 23 mg/dl (9-20); Calcium 10.4 mg/dl (8.4-10.2); Carbon Dioxide 27 mmol/L (22-30); Chloride 97 mmol/L (98-107); Estimated Creatinine Clearance 103 ml/min; Glucose 153 mg/dl (70-99); Potassium 4.5 mmol/L (3.5-5.1); Sodium 132 mmol/L (135-145); eGFR > 60.00
[2025-06-22 07:30] VITALS: BP 122/75
--- NOTE | 2025-06-22 08:10 | W.PN.ONC2 ---
Today's Communication / Plan
-
.
Impression
Impression
IV NSCLC s/p XRT awaiting systemic therapy at [facility]
admitted with intractable pain despite home pain medications
anemia with Hgb trend from >10 to 8g/dL, heme positive stool. No role for iron repletion with ferritin 697
hypercalcemia likely of malignancy improved with IVF
mild hyponatremia
Plan
Plan
MAINTENANCE PERSON for pain management -will need eventual transition to OP pain regimen
f/u b12, folate, monitor for bleeding
continue IVF, consider OP zometa vs xgeva for hypercalcemia
smoking cessation
May benefit from palliative care involvement for symptom management in the community since 3rd presentation this month for pain management
OP malignancy management for systemic therapy will be arranged by [facility] upon discharge
Subjective/Objective
Subjective
afebrile, no hypoxia or hypotension
good appetite
improved pain control
ambulating to bathroom
Vital Signs:
Vital Signs
Temp Pulse Resp BP Pulse Ox
97.5 F 93 16 144/85 94
06/22/25 05:00 06/22/25 05:00 06/22/25 05:00 06/22/25 05:00 06/22/25 05:00
Lab Results:
Laboratory Data
WBC 9.8 10^3/uL (4.8-10.8) 06/22/25 05:35
Hgb 8.8 g/dL (13.0-18.0) L 06/22/25 05:35
Plt Count 245 10^3/uL (130-400) 06/22/25 05:35
eGFR > 60.00 06/22/25 05:35
Physical Exam
General: Appears in Distress and Pain
HEENT: Moist Mucous Membranes; Negative Jaundice
Cardiology: Normal Sinus Rhythm
Pulmonary: Clear
GI: Soft
Extremities: Pulses Present
Skin: Warm
Orders
Orders
Orders From Last 24 Hours
06/21/25 14:00
Dexamethasone Sod Phosphate [Decadron] 4 mg IV Q8H
[2025-06-22] MEDS: TYLENOL 1000 MG PO ×3 (08:58→22:04)
[2025-06-22] MEDS: PEPCID 20 MG PO ×2 (08:58→19:40)
[2025-06-22] MEDS: FOLVITE 1 MG PO (08:58)
[2025-06-22] MEDS: NSS (PRESERVATIVE FREE) 10 ML IV (08:58)
[2025-06-22] MEDS: COLACE 100 MG PO ×2 (08:58→19:40)
[2025-06-22] MEDS: MIRALAX 17 GRAMS PO (08:58)
[2025-06-22] MEDS: PROTONIX IV 40 MG IV (08:59)
--- NOTE | 2025-06-22 10:59 | W.PN.HOSP.TC ---
Today's Communication/Plan
-
see plan
Assessment / Plan
Assessment / Plan
60-year-old with recent diagnosis of metastatic lung cancer with osseous mets involving the sternum and bilateral ribs s/p radiation, awaiting chemotherapy (seen at [place] [facility]) presents to the ER with intractable pain despite home pain medications.
Severe pain 2/2 Osseous metastatic Disease
Lung Cancer
- increased long acting morphine to 30mg q 8 hours (from q 12)
- DRYWALL CONTRACTOR pump initiated - using about 8mg dilaudid/ shift
- *working with pharmacy to increase MS Contin further
- start famotidine and ppi iv daily
- Antiemetics
- Bowel regimen
- appreciate Oncology consult
Anemia
-Hg stable
-iron % sat low, consider IV Iron
DVT prophylaxis� start Lovenox given high risk; monitor H/H
CODE STATUS�full code
51 minutes spent on patient care
Anticipated Discharge: 24 - 48 hours
Subjective/Interval History
-
Date of Service: June 22, 2025
feeling a lot better today
hasn't had BM yet, doesn't feel constipated
walking around
Objective Data
-
Labs:
Laboratory Results
06/22/25
05:35
WBC 9.8
Hgb 8.8 L
Hct 27.2 L
Plt Count 245
Sodium 132 L
Potassium 4.5
Chloride 97 L
Carbon Dioxide 27
BUN 23 H
Creatinine 0.9
Glucose 153 H
Calcium 10.4 H
Vital Signs:
Vital Signs
Temp Pulse Resp BP Pulse Ox
98.1 F 84 16 122/75 94
06/22/25 07:30 06/22/25 07:30 06/22/25 07:30 06/22/25 07:30 06/22/25 07:30
I&O
06/21/25 06/22/25 06/23/25
06:59 06:59 06:59
Intake Total 2560 / 2560
Balance 2560 / 2560
Review of Systems
-
History Source: Patient
All other systems: Reviewed and negative
Physical Exam
-
General: Other (appears much more comfortable today )
HEENT: PERRLA
Respiratory: Clear to Auscultation; Negative Wheezes
Cardiac: Regular Rhythm and S1/S2
GI: Soft and Nontender
Musculoskeletal: No Edema
Skin: Warm and Dry; Negative Rash
Neuro: AO x 3
Psych: Calm
Data Reviewed
-
Diagnostic Radiology: Report Reviewed by me
Labs: Labs Reviewed by me
[2025-06-22] MEDS: D5/0.45%NACL 1000 IV (11:07)
[2025-06-22 11:59] LABS: Ferritin 697.0 ng/ml (17.9-464.0)
[2025-06-22 12:31] LABS: Folate 14.1 ng/ml (2.76-20); Vitamin B12 > 1000 pg/ml (239-931)
[2025-06-22] MEDS: MS CONTIN (EXTENDED RELEASE) 45 MG PO ×2 (13:15→22:04)
[2025-06-22] MEDS: DILAUDID PCA 30 IV (14:55)
[2025-06-22 16:00] VITALS: BP 133/86
--- NOTE | 2025-06-22 16:03 | CM ---
Late note from 06/11/2025:
Pt is alert and oriented, reports being (I) amb and adls at baseline; needs assistance in the hospital and appears forgetful.
Pt is uninsured; just moved into his family home (2 story home with no entry steps) which his brother just purchased the home from his parents who live in an 'in-law suite'.
There is a stair glide in the home. No other DME per patient report. Await PT/OT evaluations.
Plan: CM following to coordinate all identified needs.
[2025-06-22] MEDS: LOVENOX 40 MG SC (18:05)
[2025-06-22] MEDS: MELATONIN 5 MG PO (22:04)
[2025-06-22 23:00] VITALS: BP 132/83
[2025-06-23] MEDS: MS CONTIN (EXTENDED RELEASE) 45 MG PO ×3 (05:38→22:33)
[2025-06-23] MEDS: DECADRON 4 MG IV ×2 (05:38→15:55)
[2025-06-23 07:00] VITALS: BP 138/82
[2025-06-23] MEDS: TYLENOL 1000 MG PO ×3 (09:29→22:34)
[2025-06-23] MEDS: NSS (PRESERVATIVE FREE) 10 ML IV (09:29)
[2025-06-23] MEDS: PROTONIX IV 40 MG IV (09:30)
[2025-06-23] MEDS: PEPCID 20 MG PO ×2 (09:30→22:34)
[2025-06-23] MEDS: MIRALAX 17 GRAMS PO ×3 (09:30→22:33)
[2025-06-23] MEDS: COLACE 100 MG PO ×2 (09:30→21:24)
[2025-06-23] MEDS: FOLVITE 1 MG PO (09:30)
--- NOTE | 2025-06-23 10:36 | W.PN.HOSP.TC ---
Today's Communication/Plan
-
working with pharmacy and Oncology to consider starting Fentanyl patch and adjusting oral meds
increase bowel regimen
lower Decadron
Assessment / Plan
Assessment / Plan
60-year-old with recent diagnosis of metastatic lung cancer with osseous mets involving the sternum and bilateral ribs s/p radiation, awaiting chemotherapy (seen at [place]) presents to the ER with intractable pain despite home pain medications.
Severe pain 2/2 Osseous metastatic Disease
Lung Cancer
- MARKETING UNDERWRITER pump - working with pharmacy to further adjust oral meds - trying to transition to fentanyl patch
- Decadron initiated by Oncology --> decrease dose as patient isn't sleeping
- start famotidine and ppi iv daily
- Antiemetics
- Bowel regimen
- appreciate Oncology consult
Constipation 2/2 Opiates
-increase Miralax to TID
Anemia
-Hg stable
-iron % sat low, ferritin high - mixed NICK and ACD
-IV iron initiated
-repeat labs this morning
DVT prophylaxis� start Lovenox given high risk; monitor H/H
CODE STATUS�full code
51 minutes spent on patient care
Anticipated Discharge: > 48 hours
Subjective/Interval History
-
Date of Service: June 23, 2025
Objective Data
-
Vital Signs:
Vital Signs
Temp Pulse Resp BP Pulse Ox
98.4 F 75 18 138/82 97
06/23/25 07:00 06/23/25 07:00 06/23/25 07:00 06/23/25 07:00 06/23/25 07:00
I&O
06/22/25 06/23/25 06/24/25
06:59 06:59 05:59
Intake Total 2560 / 2560 1879
Balance 2560 / 2560 1879
Review of Systems
-
History Source: Patient
All other systems: Reviewed and negative
Physical Exam
-
General: Other (appears much more comfortable today )
HEENT: PERRLA
Respiratory: Clear to Auscultation; Negative Wheezes
Cardiac: Regular Rhythm and S1/S2
GI: Soft and Nontender
Musculoskeletal: No Edema
Skin: Warm and Dry; Negative Rash
Neuro: AO x 3
Psych: Calm
Data Reviewed
-
Diagnostic Radiology: Report Reviewed by me
Labs: Labs Reviewed by me
--- NOTE | 2025-06-23 10:58 | W.PN.ONC ---
Today's Communication / Plan
-
Patient will be following up with [facility] for systemic therapy
ROTARY CUTTER FEEDER for pain management currently transitioning to long-acting
Patient may best be served with long-acting transdermal therapy worry he may confuse long-acting and short acting pain p.o. medicines
Would administer Venofer 200 mg
Decreased dexamethasone to twice daily last dose at 4 PM (insomnia)
Repeat stool for occult blood consider GI evaluation
Patient on PPI
Follow-up with [facility]
Impression
Impression
IV NSCLC transitioning his care to [facility]
Anemia with Hgb trend from >10 to 8g/dL, heme positive stool
Ferritin elevated with malignancy, serum iron saturation low with normal TIBC
Hypercalcemia likely of malignancy improved with IVF
Mild hyponatremia
Subjective/Objective
Subjective/Objective
Significant improvement in pain. Complaining of some insomnia. Having some difficulty understanding short acting and long-acting opioid therapy.
Vital Signs:
Vital Signs
Temp Pulse Resp BP Pulse Ox
98.4 F 75 18 138/82 97
06/23/25 07:00 06/23/25 07:00 06/23/25 07:00 06/23/25 07:00 06/23/25 07:00
Physical exam unchanged
Lab Results:
Laboratory Data
WBC 9.8 10^3/uL (4.8-10.8) 06/22/25 05:35
Hgb 8.8 g/dL (13.0-18.0) L 06/22/25 05:35
Plt Count 245 10^3/uL (130-400) 06/22/25 05:35
eGFR > 60.00 06/22/25 05:35
[2025-06-23 11:22] LABS: Hematocrit 25.6 % (39.0-52.0); Hemoglobin 8.5 g/dL (13.0-18.0); Mean Corp Hgb Conc. 33.2 g/dL (33.0-37.0); Mean Corpuscular Volume 88.0 fL (80.0-94.0); Platelet Count 262 10^3/uL (130-400); Red Cell Dist. Width 13.2 % (11.5-14.5)
[2025-06-23 11:47] LABS: Blood Urea Nitrogen 23 mg/dl (9-20); Calcium 10.2 mg/dl (8.4-10.2); Carbon Dioxide 30 mmol/L (22-30); Chloride 95 mmol/L (98-107); Estimated Creatinine Clearance 103 ml/min; Glucose 137 mg/dl (70-99); Potassium 4.5 mmol/L (3.5-5.1); Sodium 132 mmol/L (135-145); eGFR > 60.00
[2025-06-23] MEDS: DURAGESIC 50 MCG/HR PATCH 1 PATCH TRANSDERM (14:13)
[2025-06-23] MEDS: FERRLECIT 110 MG IV (14:13)
--- NOTE | 2025-06-23 14:58 | PTCARENOTE ---
SPEECH THERAPIST EARLY INTERVENTION discontinued. Offered pt to administer dose prior to discontinuation and declined - reported didn't need one right now. Fentanyl patch applied to L shoulder. New pain regimen explained to patient and family member - verbalized understanding of
plan but admits to and visibly anxious regarding return of pain. Reassurance provided and plan reiterated. Pt understood and accepted.
[2025-06-23 15:00] VITALS: BP 144/95
[2025-06-23] MEDS: DULCOLAX 10 MG RECTAL (15:55)
[2025-06-23] MEDS: MORPHINE ORAL SOLUTION 10 MG PO (17:24)
[2025-06-23] MEDS: LOVENOX 40 MG SC (17:25)
[2025-06-23] MEDS: MELATONIN 5 MG PO (22:33)
[2025-06-23 23:00] VITALS: BP 123/60
[2025-06-24] MEDS: MORPHINE ORAL SOLUTION 10 MG PO (03:04)
[2025-06-24] MEDS: DECADRON 4 MG IV (04:21)
[2025-06-24] MEDS: MS CONTIN (EXTENDED RELEASE) 45 MG PO ×3 (06:03→22:02)
[2025-06-24 07:00] VITALS: BP 138/77
--- NOTE | 2025-06-24 07:41 | PTCARENOTE ---
at 0741,pt reports that since 0430, pain has been horrible with no relief. Soft care overlay applied to bed to help patient's pain. tiger texted Dr. Porter and Dr. Boucher requesting increase of of oral morphine sulfate and ?Dilaudid IV to help with
pain. Dr. Porter agreed and ordered Dilaudid 1mg IV now and then q2hrs PRN severe break through pain and increased morphine sulfate 15mgs PO severe pain. After Dilaudid administered, patient's level at 1025 5/10 at rest, will continue to monitor.
[2025-06-24] MEDS: TYLENOL 1000 MG PO ×3 (08:25→22:02)
[2025-06-24] MEDS: PROTONIX 40 MG PO (08:25)
[2025-06-24] MEDS: COLACE 100 MG PO ×2 (08:25→19:50)
[2025-06-24] MEDS: DILAUDID 1 MG IV ×2 (08:25→13:11)
[2025-06-24] MEDS: FOLVITE 1 MG PO (08:25)
[2025-06-24] MEDS: MIRALAX 17 GRAMS PO ×3 (08:25→22:03)
[2025-06-24] MEDS: MORPHINE SULFATE 15 MG PO ×3 (09:53→20:39)
--- NOTE | 2025-06-24 10:03 | W.PN.ONC ---
Today's Communication / Plan
-
Patient will be following up with [facility] for systemic therapy
May need to consider Dilaudid for breakthrough
Would increase dexamethasone back to 4 mg 3 times daily given radicular pain
Patient may best be served with long-acting transdermal therapy worry he may confuse long-acting and short acting pain p.o. medicines
Patient iron deficient
Impression
Impression
IV NSCLC transitioning his care to [facility]
Pain syndrome
Anemia with Hgb trend from >10 to 8g/dL, heme positive stool
Ferritin elevated with malignancy, serum iron saturation low with normal TIBC
Hypercalcemia likely of malignancy improved with IVF
Mild hyponatremia
Subjective/Objective
Subjective/Objective
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 He describes a toothache like pain down his right arm with numbness suggestive of cervical radiculopathy
Vital Signs:
Vital Signs
Temp Pulse Resp BP Pulse Ox
97.9 F 77 18 138/77 97
06/24/25 07:00 06/24/25 07:00 06/24/25 07:00 06/24/25 07:00 06/24/25 07:00
Unchanged physical examination
Lab Results:
Laboratory Data
WBC 15.0 10^3/uL (4.8-10.8) H 06/23/25 11:01
Hgb 8.5 g/dL (13.0-18.0) L 06/23/25 11:01
Plt Count 262 10^3/uL (130-400) 06/23/25 11:01
eGFR > 60.00 06/23/25 11:01
[2025-06-24 10:25] VITALS: BP 148/88; PULSE 86; O2SAT 96
--- NOTE | 2025-06-24 11:35 | W.PN.HOSP.TC ---
Today's Communication/Plan
-
see plan
Assessment / Plan
Assessment / Plan
60-year-old with recent diagnosis of metastatic lung cancer with osseous mets involving the sternum and bilateral ribs s/p radiation, awaiting chemotherapy (seen at [facility]) presents to the ER with intractable pain despite home pain medications.
Severe pain 2/2 Osseous metastatic Disease
Lung Cancer
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
-working with pharmacy and have now started Fentanyl patch with goal to uptitrate at a safe pace (patient with some difficulty comprehending medication instructions and would do better with a patch) - discussed with patient and family
-plan is to wean down long acting morphine as we go up on Fentanyl patch
-continue PRN short acting morphine (dose increased today); with IV Dilaudid PRN severe breakthrough pain
-continue Fentanyl 50mcg q 72 hours today, can likely start uptitration tomorrow. *Hospitalist to discuss opiate regimen with pharmacy tomorrow
-continue IV Decadron as pain may also be in setting of inflammation post radiation
-continue bowel regimen
-PT
-appreciate Oncology and pharmacy
Constipation 2/2 Opiates
-increase Miralax to TID - patient had a BM, can lower Miralax dosing if loose stools
Insomnia
-patient reports only sleeping 3-4 hours since admission. He need steroids for inflammation. No drowsy effect from opiates
-will start Trazodone 25mg qhs - can give extra dose of 25mg tonight if ineffective
Anemia
-Hg stable
-iron % sat low, ferritin high - mixed NICK and ACD
-IV iron initiated
DVT prophylaxis� start Lovenox given high risk DVT; monitor H/H
CODE STATUS�full code
51 minutes spent on patient care
Anticipated Discharge: > 48 hours
Subjective/Interval History
-
Date of Service: June 24, 2025
had increased pain this morning
not sleeping at night
Objective Data
-
Vital Signs:
Vital Signs
Temp Pulse Resp BP Pulse Ox
97.9 F 77 18 138/77 97
06/24/25 07:00 06/24/25 07:00 06/24/25 07:00 06/24/25 07:00 06/24/25 07:00
I&O
06/23/25 06/24/25 06/25/25
06:59 05:59 06:59
Intake Total 1879
Balance 1879
Review of Systems
-
History Source: Patient
All other systems: Reviewed and negative
Physical Exam
-
General: No Apparent Distress
HEENT: PERRLA
Respiratory: Clear to Auscultation; Negative Wheezes
Cardiac: S1/S2
GI: Soft and Nontender
Musculoskeletal: No Edema
Skin: Warm and Dry; Negative Rash
Neuro: AO x 3
Psych: Calm
Data Reviewed
-
Diagnostic Radiology: Report Reviewed by me
Labs: Labs Reviewed by me
[2025-06-24] MEDS: FERRLECIT 110 MG IV (14:39)
[2025-06-24 15:00] VITALS: BP 135/92
[2025-06-24] MEDS: LOVENOX 40 MG SC (17:01)
[2025-06-24] MEDS: DECADRON 4 MG PO (19:50)
[2025-06-24] MEDS: DESYREL 25 MG PO (22:00)
[2025-06-24] MEDS: MELATONIN 5 MG PO (22:01)
[2025-06-24] MEDS: PEPCID 20 MG PO (22:01)
[2025-06-24 23:40] VITALS: BP 121/81
[2025-06-25] MEDS: MORPHINE SULFATE 15 MG PO ×3 (00:56→18:08)
--- NOTE | 2025-06-25 01:17 | PTCARENOTE ---
Pt awake, ambulatory to bathroom with walker. Pt reports right lower back pain. PRN Pain medication administered as ordered. Pt conversant and chatty. Pt settled in bed per comfort. call mcclendon in reach. Will continue to monitor.
[2025-06-25] MEDS: DECADRON 4 MG PO ×3 (04:50→20:44)
[2025-06-25] MEDS: MS CONTIN (EXTENDED RELEASE) 45 MG PO ×2 (05:01→13:10)
--- NOTE | 2025-06-25 06:00 | PTCARENOTE ---
Pt did not sleep well. pt awake, having some issues with urinary inc. Some forgetfulness noted. Pt up and down frequently. Pt continues to report some pain, but appears to be moving without difficulty. PRN pain medication administered as ordered.
Close monitoring maintained. Vital signs stable. Will continue to monitor.
[2025-06-25 06:33] LABS: Hematocrit 25.8 % (39.0-52.0); Hemoglobin 8.2 g/dL (13.0-18.0); Mean Corp Hgb Conc. 31.8 g/dL (33.0-37.0); Mean Corpuscular Volume 90.8 fL (80.0-94.0); Platelet Count 228 10^3/uL (130-400); Red Cell Dist. Width 13.5 % (11.5-14.5)
[2025-06-25 07:39] VITALS: BP 143/68
[2025-06-25] MEDS: TYLENOL 1000 MG PO ×3 (08:32→23:01)
[2025-06-25] MEDS: COLACE 100 MG PO ×2 (08:32→20:44)
[2025-06-25] MEDS: PROTONIX 40 MG PO (08:32)
[2025-06-25] MEDS: FOLVITE 1 MG PO (08:32)
[2025-06-25] MEDS: MIRALAX 17 GRAMS PO ×3 (08:33→22:59)
--- NOTE | 2025-06-25 12:24 | W.PN.ONC2 ---
Today's Communication / Plan
-
discharge planning
Impression
Impression
IV NSCLC
Pain syndrome
Anemia with Hgb trend from >10 to 8g/dL, heme positive stool
Ferritin elevated with malignancy, serum iron saturation low with normal TIBC
Hypercalcemia likely of malignancy improved with IVF
Mild hyponatremia
Plan
Plan
continue long-acting narcotic with prn immediate release
May benefit from palliative care involvement for symptom management in the community since 3rd presentation this month for pain management
Subjective/Objective
Subjective
pain better controlled
using bowel regimen, last BM 1-2 days ago
Vital Signs:
Vital Signs
Temp Pulse Resp BP Pulse Ox
97.9 F 81 16 143/68 95
06/25/25 07:39 06/25/25 07:39 06/25/25 07:39 06/25/25 07:39 06/25/25 07:39
Lab Results:
Laboratory Data
WBC 10.4 10^3/uL (4.8-10.8) 06/25/25 06:03
Hgb 8.2 g/dL (13.0-18.0) L 06/25/25 06:03
Plt Count 228 10^3/uL (130-400) 06/25/25 06:03
eGFR > 60.00 06/23/25 11:01
Physical Exam
HEENT: No Jaundice
Pulmonary: Other (unlabored)
Extremities: Pulses Present; No Edema
--- NOTE | 2025-06-25 13:06 | W.PN.HOSP.TC ---
Addendum entered and electronically signed by Idris Carney MD 06/25/25 15:06:
Discussed with pharmacy in length. Since patient is already on fentanyl, we do not need to titrate long-acting morphine. Pharmacy recommended to discontinue MS Contin and to keep patient on as needed Dilaudid and morphine as needed. Starting 06/26
will also increase fentanyl.
Original Note:
Today's Communication/Plan
-
Monitor vital signs and see plan
Titrate pain medication, contacted pharmacy, awaiting response
Steroids per oncology
Assessment / Plan
Assessment / Plan
60-year-old with recent diagnosis of metastatic lung cancer with osseous mets involving the sternum and bilateral ribs s/p radiation, awaiting chemotherapy (seen at [facility]) presents to the ER with intractable pain despite home pain medications.
Severe pain 2/2 Osseous metastatic Disease
Lung Cancer
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
-working with pharmacy and have now started Fentanyl patch with goal to uptitrate at a safe pace (patient with some difficulty comprehending medication instructions and would do better with a patch) - discussed with patient and family
-plan is to wean down long acting morphine as we go up on Fentanyl patch
-continue PRN short acting morphine (dose increased ); with IV Dilaudid PRN severe breakthrough pain
-continue Fentanyl 50mcg q 72 hours , can likely start uptitration. Discussed with pharmacy, awaiting response. Discussed with patient that moving forward he should be following up with practice that was prescribing his pain medications before
-continue IV Decadron as pain may also be in setting of inflammation post radiation. Oncology to decide on steroid moving forward
-continue bowel regimen
-PT
-appreciate Oncology and pharmacy
Constipation 2/2 Opiates
-increase Miralax to TID - patient had a BM, can lower Miralax dosing if loose stools
Insomnia
-patient reports only sleeping 3-4 hours since admission. He need steroids for inflammation. No drowsy effect from opiates
- Continue trazodone 25mg qhs - can give extra dose of 25mg tonight if ineffective
Anemia
-Hg stable
-iron % sat low, ferritin high - mixed NICK and ACD
-IV iron initiated
DVT prophylaxis� start Lovenox given high risk DVT; monitor H/H
CODE STATUS�full code
General: No Apparent Distress
HEENT: PERRLA
Respiratory: Clear to Auscultation; Negative Wheezes
Cardiac: S1/S2
GI: Soft and Nontender
Musculoskeletal: No Edema
Skin: Warm and Dry; Negative Rash
Neuro: AO x 3
Psych: Calm
Anticipated Discharge: Within 24 hours
Subjective/Interval History
-
Date of Service: June 25, 2025
Continues to have some pain
Objective Data
-
Labs:
Laboratory Results
06/25/25
06:03
WBC 10.4
Hgb 8.2 L
Hct 25.8 L
Plt Count 228
Vital Signs:
Vital Signs
Temp Pulse Resp BP Pulse Ox
97.9 F 81 16 143/68 95
06/25/25 07:39 06/25/25 07:39 06/25/25 07:39 06/25/25 07:39 06/25/25 07:39
I&O
06/24/25 06/25/25 06/26/25
05:59 06:59 06:59
Intake Total 2199 2640 / 2640
Output Total /
Balance 2199 2636 / 2636
[2025-06-25] MEDS: FERRLECIT 110 MG IV (13:10)
[2025-06-25 16:08] VITALS: BP 136/75
[2025-06-25] MEDS: LOVENOX 40 MG SC (17:26)
[2025-06-25] MEDS: DESYREL 25 MG PO (22:58)
[2025-06-25] MEDS: MELATONIN 5 MG PO (22:58)
[2025-06-25] MEDS: PEPCID 20 MG PO (23:01)
[2025-06-25 23:27] VITALS: BP 122/71
[2025-06-26] MEDS: DECADRON 4 MG PO ×2 (04:07→22:42)
[2025-06-26] MEDS: MORPHINE SULFATE 15 MG PO ×4 (04:09→22:45)
[2025-06-26] MEDS: DILAUDID 1 MG IV ×3 (05:21→23:55)
[2025-06-26 07:00] LABS: Hematocrit 27.3 % (39.0-52.0); Hemoglobin 8.5 g/dL (13.0-18.0); Mean Corp Hgb Conc. 31.1 g/dL (33.0-37.0); Mean Corpuscular Volume 91.6 fL (80.0-94.0); Nucleated Red Blood Cells % 0 % (-); Platelet Count 265 10^3/uL (130-400); Red Cell Dist. Width 13.8 % (11.5-14.5)
[2025-06-26 07:19] LABS: Blood Urea Nitrogen 22 mg/dl (9-20); Calcium 9.6 mg/dl (8.4-10.2); Carbon Dioxide 28 mmol/L (22-30); Chloride 99 mmol/L (98-107); Estimated Creatinine Clearance 116 ml/min; Glucose 116 mg/dl (70-99); Potassium 4.5 mmol/L (3.5-5.1); Sodium 132 mmol/L (135-145); eGFR > 60.00
[2025-06-26 07:25] VITALS: BP 138/78
[2025-06-26] MEDS: TYLENOL 1000 MG PO ×3 (08:15→22:41)
[2025-06-26] MEDS: COLACE 100 MG PO ×2 (08:15→22:42)
[2025-06-26] MEDS: PROTONIX 40 MG PO (08:15)
[2025-06-26] MEDS: FOLVITE 1 MG PO (08:15)
[2025-06-26] MEDS: MIRALAX 17 GRAMS PO ×3 (08:15→22:41)
--- NOTE | 2025-06-26 08:45 | W.PN.ONC2 ---
Today's Communication / Plan
-
discharge planning
Pt plans to follow up at [facility] upon discharge for next steps in malignancy mangement
Impression
Impression
IV NSCLC
cancer pain
Anemia with Hgb trend from >10 to ~ 8g/dL, heme positive stool, no B12 or folate deficiency
Ferritin elevated with malignancy, serum iron saturation low with normal TIBC treated with Ferrlecit x 3 doses
Hypercalcemia likely of malignancy improved with IVF
Mild hyponatremia resolved with IVF
Plan
Plan
continue long-acting narcotic with prn immediate release
taper dexamethasone from 4mg q8 to 4mg BID with plan to follow up with [facility] for continued taper
Subjective/Objective
Subjective
afebrile, no hypoxia or hypotension
using tylenol, morphine IR, and fent patch for pain
using colace, senna, and miralax for constipation
Vital Signs:
Vital Signs
Temp Pulse Resp BP Pulse Ox
97.8 F 66 18 138/78 96
06/26/25 07:25 06/26/25 07:25 06/26/25 07:25 06/26/25 07:25 06/26/25 07:25
Lab Results:
Laboratory Data
WBC 13.2 10^3/uL (4.8-10.8) H 06/26/25 06:14
Hgb 8.5 g/dL (13.0-18.0) L 06/26/25 06:14
Plt Count 265 10^3/uL (130-400) 06/26/25 06:14
eGFR > 60.00 06/26/25 06:14
Physical Exam
HEENT: Moist Mucous Membranes; No Jaundice
Pulmonary: Other (unlabored)
GI: Soft
Extremities: Pulses Present; No Edema
Neuro: Non Focal
--- NOTE | 2025-06-26 12:28 | W.PN.HOSP.TC ---
Today's Communication/Plan
-
monitor vital signs see plan
Explained patient that he will be on fentanyl and he should not continue long-acting morphine moving forward. He does have as needed morphine if needed. He and his partner at bedside reports understanding.
monitor symptoms closely with increased dose of fentanyl
Decadron now 4 mg p.o. twice daily
discharge planning
onsite case manager evaluation on palliative info
Assessment / Plan
Assessment / Plan
60-year-old with recent diagnosis of metastatic lung cancer with osseous mets involving the sternum and bilateral ribs s/p radiation, awaiting chemotherapy (seen at [facility]) presents to the ER with intractable pain despite home pain medications.
Severe pain 2/2 Osseous metastatic Disease
Lung Cancer
-patient is s/p 48 hours REPORT CLERK pump with increase in MERCHANDISE PROCESSOR MS Contin
-working with pharmacy and have now started Fentanyl patch with goal to uptitrate at a safe pace (patient with some difficulty comprehending medication instructions and would do better with a patch) - discussed with patient and family
-plan is to wean down long acting morphine as we go up on Fentanyl patch
-continue PRN short acting morphine (dose increased ); with IV Dilaudid PRN severe breakthrough pain
Discussed with pharmacy in length. Since patient is already on fentanyl, we do not need to titrate long-acting morphine. Pharmacy recommended to discontinue MS Contin and to keep patient on as needed Dilaudid and morphine as needed. Starting 06/26
will also increase fentanyl at 62mcg
Discussed with patient that moving forward he should be following up with practice that was prescribing his pain medications before
-continue IV Decadron as pain may also be in setting of inflammation post radiation. Discussed with oncology, continue Decadron 4 mg p.o. twice daily and patient will follow-up with outpatient oncology at [facility] for further titration
-continue bowel regimen
-PT
-appreciate Oncology and pharmacy
Constipation 2/2 Opiates
-increase Miralax to TID - patient had a BM, can lower Miralax dosing if loose stools
Insomnia
-patient reports only sleeping 3-4 hours since admission. He need steroids for inflammation. No drowsy effect from opiates
- Continue trazodone 25mg qhs
Anemia
-Hg stable
-iron % sat low, ferritin high - mixed NICK and ACD
-IV iron initiated
DVT prophylaxis� start Lovenox given high risk DVT; monitor H/H
CODE STATUS�full code
General: No Apparent Distress
HEENT: PERRLA
Respiratory: Clear to Auscultation; Negative Wheezes
Cardiac: S1/S2
GI: Soft and Nontender
Musculoskeletal: No Edema
Skin: Warm and Dry; Negative Rash
Neuro: AO x 3
Psych: Calm
Anticipated Discharge: Within 24 hours
Subjective/Interval History
-
Date of Service: June 26, 2025
Denies nausea
Objective Data
-
Labs:
Laboratory Results
06/26/25
06:14
WBC 13.2 H
Hgb 8.5 L
Hct 27.3 L
Plt Count 265
Sodium 132 L
Potassium 4.5
Chloride 99
Carbon Dioxide 28
BUN 22 H
Creatinine 0.8
Glucose 116 H
Calcium 9.6
Vital Signs:
Vital Signs
Temp Pulse Resp BP Pulse Ox
97.8 F 66 18 138/78 96
06/26/25 07:25 06/26/25 07:25 06/26/25 07:25 06/26/25 07:25 06/26/25 10:25
I&O
06/25/25 06/26/25 06/27/25
06:59 06:59 06:59
Intake Total 2640 / 2640 480 / 480
Output Total 4 / 4
Balance 2636 / 2636 480 / 480
[2025-06-26] MEDS: DURAGESIC 50 MCG/HR PATCH 1 PATCH TRANSDERM (13:38)
[2025-06-26] MEDS: FERRLECIT 110 MG IV (13:42)
[2025-06-26] MEDS: REMOVE DURAGESIC PATCH 50 PATCH REMOVE (13:43)
[2025-06-26] MEDS: DURAGESIC 12 MCG/HR PATCH 1 PATCH TRANSDERM (13:51)
[2025-06-26] MEDS: DECADRON PO (14:21)
[2025-06-26 16:00] VITALS: BP 139/83
--- NOTE | 2025-06-26 16:44 | CM ---
MD ordered consult for Palliative care . Referral made in care port.
Spoke with patient offered VN he declined need.
Explained Palliative care to patient and he said he was unaware of Palliative care need.(MD had ordered today ).
PLAN Home with No needs except out pt Palliative care.
[2025-06-26] MEDS: LOVENOX 40 MG SC (17:34)
[2025-06-26] MEDS: PEPCID 20 MG PO (22:42)
[2025-06-26] MEDS: DESYREL 25 MG PO (22:42)
[2025-06-26] MEDS: MELATONIN 5 MG PO (22:42)
[2025-06-26 23:20] VITALS: BP 133/72
[2025-06-26] MEDS: NEURONTIN 100 MG PO (23:55)
[2025-06-27] MEDS: MORPHINE SULFATE 15 MG PO ×4 (04:15→17:53)
[2025-06-27 06:33] LABS: Hematocrit 25.3 % (39.0-52.0); Hemoglobin 8.1 g/dL (13.0-18.0); Mean Corp Hgb Conc. 32.0 g/dL (33.0-37.0); Mean Corpuscular Volume 90.4 fL (80.0-94.0); Nucleated Red Blood Cells % 0 % (-); Platelet Count 231 10^3/uL (130-400); Red Cell Dist. Width 14.0 % (11.5-14.5)
[2025-06-27 06:55] LABS: Blood Urea Nitrogen 23 mg/dl (9-20); Calcium 9.1 mg/dl (8.4-10.2); Carbon Dioxide 28 mmol/L (22-30); Chloride 100 mmol/L (98-107); Estimated Creatinine Clearance 116 ml/min; Glucose 105 mg/dl (70-99); Potassium 4.8 mmol/L (3.5-5.1); Sodium 133 mmol/L (135-145); eGFR > 60.00
[2025-06-27 08:00] VITALS: BP 132/71
[2025-06-27] MEDS: TYLENOL 1000 MG PO ×2 (08:30→16:06)
[2025-06-27] MEDS: PROTONIX 40 MG PO (08:30)
[2025-06-27] MEDS: COLACE 100 MG PO (08:31)
[2025-06-27] MEDS: MIRALAX 17 GRAMS PO ×2 (08:31→16:06)
[2025-06-27] MEDS: DECADRON 4 MG PO (08:33)
[2025-06-27] MEDS: FOLVITE 1 MG PO (08:33)
[2025-06-27] MEDS: NEURONTIN 100 MG PO ×2 (10:15→16:06)
[2025-06-27] MEDS: DILAUDID 1 MG IV ×4 (10:21→17:07)
--- NOTE | 2025-06-27 12:15 | W.PN.HOSP.TC ---
Today's Communication/Plan
-
monitor vitals
see plan
cw fentanyl and morphine prn
gabapentin
cw steroids
Patient to follow-up with [facility] for further pain management
Time of discharge 38 minutes
Assessment / Plan
Assessment / Plan
60-year-old with recent diagnosis of metastatic lung cancer with osseous mets involving the sternum and bilateral ribs s/p radiation, awaiting chemotherapy (seen at [facility]) presents to the ER with intractable pain despite home pain medications.
Severe pain 2/2 Osseous metastatic Disease
Lung Cancer
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
-working with pharmacy and have now started Fentanyl patch with goal to uptitrate at a safe pace (patient with some difficulty comprehending medication instructions and would do better with a patch) - discussed with patient and family
-plan is to wean down long acting morphine as we go up on Fentanyl patch
-continue PRN short acting morphine (dose increased ); with IV Dilaudid PRN severe breakthrough pain
Discussed with pharmacy in length. Since patient is already on fentanyl, we do not need to titrate long-acting morphine. Pharmacy recommended to discontinue MS Contin and to keep patient on as needed Dilaudid and morphine as needed. Starting 06/26
will also increase fentanyl at 62mcg
Discussed with patient that moving forward he should be following up with practice that was prescribing his pain medications before
-continue IV Decadron as pain may also be in setting of inflammation post radiation. Discussed with oncology, continue Decadron 4 mg p.o. twice daily and patient will follow-up with outpatient oncology at [facility] for further titration
-continue bowel regimen
-PT
-appreciate Oncology and pharmacy
started gabapentin 100mg TID. Patient is currently comfortable denying pain
Constipation 2/2 Opiates
-increase Miralax to TID - patient had a BM, can lower Miralax dosing if loose stools
Insomnia
-patient reports only sleeping 3-4 hours since admission. He need steroids for inflammation. No drowsy effect from opiates
- Continue trazodone 25mg qhs
Anemia
-Hg stable
-iron % sat low, ferritin high - mixed NICK and ACD
-IV iron initiated
DVT prophylaxis� start Lovenox given high risk DVT; monitor H/H
CODE STATUS�full code
General: No Apparent Distress
HEENT: PERRLA
Respiratory: Clear to Auscultation; Negative Wheezes
Cardiac: S1/S2
GI: Soft and Nontender
Musculoskeletal: No Edema
Skin: Warm and Dry; Negative Rash
Neuro: AO x 3
Psych: Calm
Anticipated Discharge: Today
Subjective/Interval History
-
Date of Service: June 27, 2025
denies nausea
Objective Data
-
Labs:
Laboratory Results
06/27/25
05:46
WBC 13.1 H
Hgb 8.1 L
Hct 25.3 L
Plt Count 231
Sodium 133 L
Potassium 4.8
Chloride 100
Carbon Dioxide 28
BUN 23 H
Creatinine 0.8
Glucose 105 H
Calcium 9.1
Vital Signs:
Vital Signs
Temp Pulse Resp BP Pulse Ox
97.9 F 75 16 132/71 97
06/27/25 08:00 06/27/25 08:00 06/27/25 08:00 06/27/25 08:00 06/27/25 08:00
I&O
06/26/25 06/27/25 06/28/25
06:59 06:59 06:59
Intake Total 480 / 480 1040 / 1040 380 / 380
Balance 480 / 480 1040 / 1040 380 / 380
--- NOTE | 2025-06-27 12:28 | W.DCSUMMARY ---
Discharge Summary
Discharge Data
Date of Admission: 06/21/25
Date of Discharge: 06/27/25
-
Pending Results: No
Hospital Course
60-year-old male with past medical history of metastatic lung cancer with osseous mets, insomnia, anemia came to the hospital with severe pain secondary to osseous metastatic disease. Patient was seen by oncology throughout hospitalization and was
also started on steroids due to his level of pain. Some of his pain was likely thought was secondary to recent radiation along with his known osseous metastatic disease. With discussion with pharmacy, he was slowly transition to fentanyl patch and
his long-acting morphine was discontinued. He was instructed to continue to take short acting morphine as needed if required. For his neuropathy he was also started on gabapentin. His symptoms continue to improve over time. On discharge he was
instructed to follow-up closely with [facility] for further pain management.
Discharge Plan
-
Patient Disposition: Home (Routine Discharge)
Discharge Diagnosis/Procedures: Severe pain 2/2 Osseous metastatic Disease
Lung Cancer
Constipation
Insomnia
Condition: Fair
Diet: As tolerated and Regular
Activity: As tolerated
Driving Restrictions: As prior to admission
Bathing Restrictions: None
Activity Restrictions/Additional Instructions:
Follow-up with your oncologist at [facility] soon as possible
Referrals:
Angela Thompson MD [Family Provider, Internal Medicine] - in less than 1 week
Prescriptions:
New
trazodone 50 mg Tablet
25 mg PO HS Qty: 30 0RF
docusate sodium 100 mg Capsule
100 mg PO BID Qty: 0 0RF
fentanyl 12 mcg/hr Patch 72 Hour
1 patch transdermal Q72H Qty: 5 0RF
fentanyl 50 mcg/hr Patch 72 Hour
1 patch transdermal Q72H Qty: 5 0RF
polyethylene glycol 3350 17 gram Powder In Packet
17 g PO BID Qty: 0 0RF
acetaminophen [Tylenol Extra Strength] 500 mg Tablet
1,000 mg PO TID Qty: 0 0RF
famotidine 20 mg Tablet
20 mg PO HS Qty: 30 0RF
pantoprazole 40 mg Tablet,Delayed Release (Dr/Ec)
40 mg PO DAILY Qty: 30 0RF
gabapentin 100 mg Capsule
100 mg PO TID Qty: 90 0RF
(DME) Remove Fentanyl Patch [Remove Duragesic Patch]
See Rx Instructions .ROUTE .MEDSUPPLY Qty: 1 0RF
Rx Instructions:
As directed
(DME) Remove Fentanyl Patch [Remove Duragesic Patch]
See Rx Instructions .ROUTE .MEDSUPPLY Qty: 1 0RF
Rx Instructions:
As directed
dexamethasone 4 mg Tablet
4 mg PO BID Qty: 60 0RF
Continued
naloxone [Rextovy] 4 mg/actuation spray,non-aerosol
1 spray intranasal Q2M PRN (Reason: opioid overdose) Qty: 2 0RF
Patient Comments:
Never got filled
morphine 15 mg Tablet
15 mg PO Q4H PRN (Reason: pain)
Patient Comments:
06/21/25: filled MS IR 15mg #30 tablets/5 day on 06/14/25 [Dr. Priya Giron] at [facility]
sennosides [senna] 8.6 mg Tablet
17.2 mg PO HS
ondansetron HCl 8 mg Tablet
8 mg PO Q8H PRN (Reason: nausea)
prochlorperazine maleate [Compazine] 10 mg Tablet
10 mg PO Q6H PRN (Reason: nausea)
folic acid 1 mg Tablet
1 mg PO DAILY
Discontinued
celecoxib 200 mg Capsule
200 mg PO BID
morphine 30 mg Tablet Extended Release
30 mg PO Q12H
Patient Comments:
06/21/25: filled Morphine Sulfate ER 30mg tablets #60/30 day supply [facility]18[facility] at [id number]
Discharge Orders:
Discharge Patient (As Directed); Ordered 06/27/25
Ordered By: Idris Carney
Discharge Date and Time
Discharge Date/Time: 06/27/25 20:03
Print Language: BELARUSIAN
[2025-06-27] MEDS: FERRLECIT 110 MG IV (13:23)
--- NOTE | 2025-06-27 13:46 | CM ---
MD entered order for discharge.
MD ordered consult for Palliative care . Referral made in care port.
Pt said his cousin Radha would drive him home.
Spoke with patient offered VN he declined need.
Explained Palliative care to patient and he said he was unsure of Palliative care need.(MD had ordered today ).
PLAN Home with No needs except out pt Palliative care.
[2025-06-27 15:08] VITALS: BP 144/79
[2025-06-27 15:45] VITALS: BP 113/58
[2025-06-27] MEDS: LOVENOX 40 MG SC (17:08)
== END 2025-06-27 20:03 | disposition home or self-care (01) | DRG 948 ==
LOC: 3 WEST ACU 08:55
PROVIDERS: Student in an Organized Health Care Education/Training Program; ADMITTING PHYSICIAN Internal Medicine; ATTENDING PHYSICIAN Internal Medicine; CONSULT PHYSICIAN Internal Medicine Hematology & Oncology; EMERGENCY PHYSICIAN Emergency Medicine; FAMILY PHYSICIAN Internal Medicine
DX: G89.3 Neoplasm related pain (acute) (chronic) (principal); C34.90 Malignant neoplasm of unspecified part of unspecified bronchus or lung; C79.51 Secondary malignant neoplasm of bone; E87.1 Hypo-osmolality and hyponatremia; K59.00 Constipation, unspecified; G47.00 Insomnia, unspecified; D64.9 Anemia, unspecified; F17.200 Nicotine dependence, unspecified, uncomplicated; Z92.3 Personal history of irradiation; G62.9 Polyneuropathy, unspecified; E83.52 Hypercalcemia
CPT/HCPCS: 80048; 80053; 82607; 82728; 82746; 83540; 83550; 85025; 85027; 86850; 86900; 86901; 97116; 97163; 99285; 99406; J2916